=== PATIENT | male | born 1985 | race African-American/Black ===

== ENCOUNTER 2017-12-29 22:38 | Emergency (ER) | payer MEDICAID ==
[~2017-12-29] VITALS: Ht 188 cm; Wt 78.0 kg
[2017-12-30 03:52] VITALS: BP 121/76
== END 2017-12-30 03:54 | disposition home or self-care (01) ==
LOC: ER 23:46
DX: H61.122 Hematoma of pinna, left ear (principal)
CPT/HCPCS: 69000; 99284

== ENCOUNTER 2018-01-05 13:50 | Emergency (ER) | payer MEDICAID ==
[~2018-01-05] VITALS: Ht 188 cm; Wt 82.0 kg
[2018-01-05 21:55] VITALS: BP 122/61
== END 2018-01-05 22:05 | disposition home or self-care (01) ==
LOC: ER 15:32
DX: S00.439A Contusion of unspecified ear, initial encounter (principal); X58.XXXA Exposure to other specified factors, initial encounter; Y93.89 Activity, other specified; Y92.89 Other specified places as the place of occurrence of the external cause; Y99.8 Other external cause status; Z98.890 Other specified postprocedural states
CPT/HCPCS: 69000; 99284